=== PATIENT | female | born 1985 | race Two or more races ===

== ENCOUNTER 2020-07-28 14:55 | Emergency (ER) | payer OTHER ==
[~2020-07-28] VITALS: Ht 167.6 cm; Wt 77.1 kg
[2020-07-28 15:03] VITALS: BP 120/68
== END 2020-07-28 16:54 | disposition home or self-care (01) ==
LOC: ER 14:55
DX: R20.2 Paresthesia of skin (principal); Z90.49 Acquired absence of other specified parts of digestive tract; Z90.89 Acquired absence of other organs; Z98.890 Other specified postprocedural states